=== PATIENT | female | born 1950 | race Caucasian/White ===

== ENCOUNTER 2017-02-04 10:15 | Observation (INO) | payer OTHER ==
[~2017-02-04] VITALS: Ht 157.5 cm; Wt 61.7 kg
[~2017-02-04 10:15] MED LIST: JANUVIA100 MG PO
[2017-02-04 10:48] LABS: HEMOGLOBIN 13.3 gm/dl (12.3-15.3); RED BLOOD COUNT 4.33 M/UL (4.00-5.10); WHITE BLOOD COUNT 11.1 K/UL (4.5-11.0)
[2017-02-04 11:08] LABS: BUN/CREATININE RATIO 33 (0-10)
[2017-02-04] MEDS ORDERED: JANUMET 50-1,01 EACH PO (17:11)
[2017-02-04] MEDS ORDERED: OMEPRAZOLE40 MG PO (17:11)
[2017-02-04] MEDS ORDERED: LISINOPRIL20 MG PO (17:20)
[2017-02-04] MEDS ORDERED: SOTALOL80 MG PO ×2 (17:20→17:21)
[2017-02-04] MEDS ORDERED: ELIQUIS5 MG PO (17:21)
[2017-02-04] MEDS ORDERED: NORVASC 5 MG TAB5 MG PO (17:22)
[2017-02-05 03:48] LABS: HEMOGLOBIN 12.4 gm/dl (12.3-15.3); RED BLOOD COUNT 3.97 M/UL (4.00-5.10); WHITE BLOOD COUNT 8.8 K/UL (4.5-11.0)
[2017-02-05 04:06] LABS: BUN/CREATININE RATIO 32 (0-10)
[2017-02-06 05:00] LABS: BUN/CREATININE RATIO 29 (0-10)
[2017-05-20] MEDS ORDERED: AMARYL1 MG PO (21:48)
[2017-05-21] MEDS ORDERED: ISOSORBIDE MONO30 MG PO (17:23)
[2017-06-25] MEDS ORDERED: LOPRESSOR50 MG PO (12:06)
[2017-06-25] MEDS ORDERED: MAGNESIUM400 MG PO (12:07)
[2017-06-25] MEDS ORDERED: LANOXIN TAB0.125 MG PO (12:08)
[2017-06-25] MEDS ORDERED: PEPCID20 MG PO (12:09)
[2017-06-25] MEDS ORDERED: LIPITOR TAB 2020 MG PO (12:10)
[2017-07-09] MEDS ORDERED: NITROSTAT0.4 MG SL (08:07)
[2017-07-10] MEDS ORDERED: LEVAQUIN TAB 5500 MG PO (09:33)
[2017-07-10] MEDS ORDERED: SOTALOL80 MG PO (09:40)
[2017-07-10] MEDS ORDERED: LORTAB 5-325 M1 EACH PO (10:16)
== END 2017-02-06 13:51 | disposition home or self-care (01) ==
LOC: ER1 10:15 → PROG CARE 14:49 → ZEROF 14:49 → PROG CARE 14:49
PROVIDERS: Student in an Organized Health Care Education/Training Program; ADMIT Internal Medicine
PROC: 5A2204Z Restoration of Cardiac Rhythm, Single (ICD-10-PCS; principal; 2017-02-05)
DX: I48.91 Unspecified atrial fibrillation (principal); I49.5 Sick sinus syndrome; I10 Essential (primary) hypertension; E11.9 Type 2 diabetes mellitus without complications; K21.9 Gastro-esophageal reflux disease without esophagitis; E83.42 Hypomagnesemia; Z79.01 Long term (current) use of anticoagulants; Z79.891 Long term (current) use of opiate analgesic; Z79.899 Other long term (current) drug therapy; Z98.84 Bariatric surgery status; Z90.49 Acquired absence of other specified parts of digestive tract; Z91.041 Radiographic dye allergy status; Z88.5 Allergy status to narcotic agent; Z82.49 Family history of ischemic heart disease and other diseases of the circulatory system; Z88.6 Allergy status to analgesic agent; Z88.8 Allergy status to other drugs, medicaments and biological substances
CPT/HCPCS: 36415; 71010; 80048; 80053; 82550; 82553; 82962; 83735; 83874; 83880; 84439; 84443; 84484; 85025; 92960; 93005; 93270; 96374; 96375; 96376; 99291; G0378; J1200; J1940; J2250; J7040

== ENCOUNTER → 2017-07-26 | Outpatient (CLI) | payer OTHER ==
[~2017-07-26] MED LIST changes: +AMARYL1 MG PO; +ELIQUIS5 MG PO; +ISOSORBIDE MONO30 MG PO; +JANUMET 50-1,01 EACH PO; +LANOXIN TAB0.125 MG PO; +LEVAQUIN TAB 5500 MG PO; +LIPITOR TAB 2020 MG PO; +LISINOPRIL20 MG PO; +LOPRESSOR50 MG PO; +LORTAB 5-325 M1 EACH PO; +MAGNESIUM400 MG PO; +NITROSTAT0.4 MG SL; +NORVASC 5 MG TAB5 MG PO; +OMEPRAZOLE40 MG PO; +PEPCID20 MG PO; +SOTALOL80 MG PO
[2017-07-26 16:20] LABS: BUN/CREATININE RATIO 37 (0-10)
== END ==
LOC: LAB 14:46
PROVIDERS: Internal Medicine Cardiovascular Disease
DX: I11.0 Hypertensive heart disease with heart failure (principal); I50.32 Chronic diastolic (congestive) heart failure; I25.119 Atherosclerotic heart disease of native coronary artery with unspecified angina pectoris; I47.2 Ventricular tachycardia; I48.0 Paroxysmal atrial fibrillation; I49.5 Sick sinus syndrome; R00.2 Palpitations
CPT/HCPCS: 36415; 80048; 83880